=== PATIENT | female | born 1965 | race Caucasian/White ===

== ENCOUNTER 2017-07-02 12:51 | Emergency (ER) | payer OTHER, MEDICARE ==
[~2017-07-02] VITALS: Ht 165.1 cm; Wt 93.9 kg
== END 2017-07-02 15:19 | disposition home or self-care (01) ==
LOC: ED 12:51
DX: S06.0X9A Concussion with loss of consciousness of unspecified duration, initial encounter (principal); S13.4XXA Sprain of ligaments of cervical spine, initial encounter; V89.2XXA Person injured in unspecified motor-vehicle accident, traffic, initial encounter; J44.9 Chronic obstructive pulmonary disease, unspecified; F17.200 Nicotine dependence, unspecified, uncomplicated; Z88.0 Allergy status to penicillin; Z88.8 Allergy status to other drugs, medicaments and biological substances
CPT/HCPCS: 99283

== ENCOUNTER 2021-05-24 16:54 | Emergency (ER) | payer MEDICARE, OTHER ==
[~2021-05-24] VITALS: Ht 165.1 cm; Wt 89.9 kg
--- OUTSIDE RECORDS SUMMARY | 2021-05-24 16:56 | XMS ---
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 Care History Behavioral 12/24/2018 [facility] Annika is a 53 year old female enrolled in behavioral health.\T\nbsp; E.D. VISIT COUNT (12 MO.) [facility]achna Dow [facility] [address] [facility] TOTAL 12 NOTE: Visits indicate total known visits. ED/UCC VISIT TRACKING (12 MO.) 05/24/2021 16:55 [facility] TYPE: Emergency COMPLAINT: - CONSTIPATION 05/[facility]2021 14:11 [facility] DIAGNOSES: - Syncope and collapse - chest pain...sent from neuro - Other chest pain - chest pain 04/23/2021 08:27 Victor M Ronshay KarelKaren [facility] [place] TYPE: Emergency DIAGNOSES: - Headache, unspecified - Other chronic pain - Altered mental status, unspecified - Altered Mental Status 04/19/2021 17:16 Victor M Nicole KarelKaren [facility] [place] TYPE: Emergency DIAGNOSES: - Shoulder Pain - Pain in right shoulder - Pain in right hip - Pain in left wrist - Pain in left hip 02/28/2021 07:55 [facility] TYPE: Emergency DIAGNOSES: - Nausea - Weakness - Iron deficiency anemia, unspecified - Dizziness 02/09/2021 04:02 [facility] TYPE: Emergency DIAGNOSES: - Hypocalcemia - Migraine without aura, not intractable, with status migrainosus - Dehydration - hip pain - Sprain of unspecified parts of lumbar spine and pelvis, initial encounter 12/18/2020 21:25 [facility] TYPE: Emergency DIAGNOSES: - Medical Follow Up - Left lower quadrant pain - Pain in left hip - Post-op Problem - Pyogenic arthritis, unspecified - Postprocedural seroma of a musculoskeletal structure following a musculoskeletal system procedure 12/06/2020 09:48 [facility] TYPE: Emergency DIAGNOSES: - Infection following a procedure, superficial incisional surgical site, initial encounter - Hip Problem - Medical Follow Up - Post-op Problem 11/21/2020 05:52 [facility] TYPE: Emergency DIAGNOSES: - Pain in left hip - Hip pain 11/15/2020 23:05 [facility] TYPE: Emergency DIAGNOSES: - Dehydration - Other muscle spasm - Hip Pain 11/12/2020 07:07 [facility] TYPE: Emergency DIAGNOSES: - Unspecified dislocation of left hip, initial encounter - Personal history of (healed) traumatic fracture - Hip Injury - Radiculopathy, lumbar region - fall - Idiopathic aseptic necrosis of left femur 11/08/2020 04:07 [facility] TYPE: Emergency DIAGNOSES: - Urinary tract infection, site not specified - Idiopathic aseptic necrosis of unspecified femur - Hip Injury - Hip pain INPATIENT VISIT TRACKING (12 MO.) 01/10/2021 12:29 [facility] TYPE: Surgery DIAGNOSES: - Mechanical loosening of other internal prosthetic joint, initial encounter - Chronic pain syndrome - Presence of left artificial hip joint - Infection and inflammatory reaction due to other internal joint prosthesis, initial encounter - Infection and inflammatory reaction due to other internal joint prosthesis, subsequent encounter - Presence of unspecified artificial hip joint 12/23/2020 13:56 [facility] TYPE: Inpatient DIAGNOSES: - Left lower quadrant pain - Postprocedural seroma of a musculoskeletal structure following a musculoskeletal system procedure - Pyogenic arthritis, unspecified - Pain in left hip 12/18/2020 21:25 [facility] TYPE: Internal Medicine DIAGNOSES: - Presence of unspecified artificial hip joint - Left lower quadrant pain - Pain in left hip - Postprocedural seroma of a musculoskeletal structure following a musculoskeletal system procedure - Pyogenic arthritis, unspecified - Infection and inflammatory reaction due to other internal joint prosthesis, subsequent encounter 11/23/2020 09:32 [facility] TYPE: Surgery DIAGNOSES: - Presence of left artificial hip joint - Presence of unspecified artificial hip joint - Mechanical loosening of other internal prosthetic joint, initial encounter - Idiopathic aseptic necrosis of left femur 11/08/2020 04:07 [facility] M [facility] TYPE: Internal Medicine DIAGNOSES: - Idiopathic aseptic necrosis of left femur - Urinary tract infection, site not specified - Personal history of (healed) traumatic fracture - Idiopathic aseptic necrosis of unspecified femur [email or web address]
[2021-05-24] MEDS ORDERED: BACLOFEN10 MG PO (20:58)
[2021-05-24] MEDS ORDERED: VENTOLIN HFA18 GM INH (20:58)
[2021-05-24] MEDS ORDERED: BUPRENORPHIN-N1 EACH SL (20:59)
[2021-05-24] MEDS ORDERED: ESZOPICLONE3 MG PO (21:00)
[2021-05-24] MEDS ORDERED: SUMATRIPTAN SUC50 MG PO (21:00)
[2021-05-24] MEDS ORDERED: DOCUSATE SODIU100 MG PO (21:01)
[2021-05-24] MEDS ORDERED: FEROSUL325 MG PO (21:01)
[2021-05-24] MEDS ORDERED: ERGOCALCIF200 MCG/1 PO (21:02)
[2021-05-24] MEDS ORDERED: BENADRYL25 MG PO (21:02)
[2021-05-24] MEDS ORDERED: LATUDA60 MG PO (21:03)
[2021-05-24] MEDS ORDERED: LEVOTHYROXINE175 MC1 PO (21:03)
[2021-05-24] MEDS ORDERED: PROZAC20 MG PO (21:03)
[2021-05-24] MEDS ORDERED: LAMICTAL XR200 MG PO (21:03)
[2021-05-24] MEDS ORDERED: MIDODRINE HCL10 MG (21:04)
[2021-05-24] MEDS ORDERED: MECLIZINE HCL25 MG (21:04)
[2021-05-24] MEDS ORDERED: MIRALAX17 GM (21:05)
[2021-05-24] MEDS ORDERED: OMEPRAZOLE20 MG (21:05)
[2021-05-24] MEDS ORDERED: ONDANSETRON ODT8 MG (21:05)
[2021-05-24] MEDS ORDERED: SINGULAIR10 MG (21:05)
[2021-05-24] MEDS ORDERED: K-TAB ER20 MEQ PO (21:06)
[2021-05-24] MEDS ORDERED: ROPINIROLE HCL2 MG PO (21:06)
[2021-05-24] MEDS ORDERED: ROPINIROLE HCL1 MG PO (21:06)
[2021-05-24] MEDS ORDERED: CRESTOR20 MG (21:07)
[2021-05-24] MEDS ORDERED: TORSEMIDE20 MG PO (21:07)
[2021-05-24] MEDS ORDERED: SENNA8.6 MG (21:07)
[2021-05-24] MEDS ORDERED: ZONEGRAN25 MG PO (21:08)
[2021-05-24] MEDS ORDERED: TRIAMCINOLONE A15 G1 TOP (21:08)
[2021-05-24] MEDS ORDERED: BACTRIM DS TAB1 EACH PO (21:59)
--- NOTE | 2021-05-25 19:36 | EKG ---
[facility] [address] [place], [place] [address] Signed Normal sinus rhythm Low voltage QRS Prolonged QT Abnormal ECG No previous ECGs available Confirmed by CAMMIE KHANNA DO ([id number]) on 05/25/2021 7:36:18 PM Electronically Signed By: CAMMIE KHANNA DO 05/25/211935 PATIENT NAME: JUAN PITTMAN Electrocardiogram DATE OF : 65 PHYSICIAN: CAMMIE KHANNA DO REPORT #: [id number] REPORT IS CONFIDENTIAL AND NOT TO BE RELEASED WITHOUT AUTHORIZATION
== END 2021-05-24 22:15 | disposition home or self-care (01) ==
LOC: ED 16:54
DX: S63.502A Unspecified sprain of left wrist, initial encounter (principal); K59.00 Constipation, unspecified; N39.0 Urinary tract infection, site not specified; G89.29 Other chronic pain; J44.9 Chronic obstructive pulmonary disease, unspecified; F17.200 Nicotine dependence, unspecified, uncomplicated; Z79.899 Other long term (current) drug therapy; Z79.51 Long term (current) use of inhaled steroids; Z88.8 Allergy status to other drugs, medicaments and biological substances; Z88.0 Allergy status to penicillin; X58.XXXA Exposure to other specified factors, initial encounter
CPT/HCPCS: 36415; 70450; 73110; 74022; 80053; 81001; 83690; 84484; 85025; 93005; 93010; 96374; 99284-25; J2405